=== PATIENT | female | born 1995 | race African-American/Black ===

== ENCOUNTER 2017-09-01 21:44 | Emergency (ER) | payer BC, OTHER ==
[~2017-09-01] VITALS: Ht 175.3 cm; Wt 95.5 kg
[~2017-09-01 21:44] MED LIST: ALBUAER2 INH; AZIT250T PO; FLVHFA44 INH
[2017-09-01 21:46] VITALS: TEMP 37.1; Ht 175.3 cm; Wt 95.5 kg
--- NOTE | 2017-09-01 22:04 | EMERGENCY ROOM VISIT NOTE ---
History Report prepared by Ehsan: Jeffrey Godoy Under the Supervision of: Dr. Mikie Mcmullen D.O. First contact with patient: 21:55 Chief Complaint: CARDIAC ASSESSMENT Stated Complaint: CHEST PAIN History of Present Illness The patient is a 22 year old female who presents to the Emergency Room with complaints of sudden onset chest pain that the patient experienced shortly prior to arrival. The patient notes that she was laying down on her floor and experienced the left-sided chest pain when she stood up. Her pain was worsened with breathing, and she felt very fatigued. The patient was unable to go to the kitchen and get herself a drink of water. 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 She has not experienced any other symptoms at practice. She denies any recent cough or dyspnea, but did start to feel cold symptoms last night into today. 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 A total of 10 systems reviewed and were otherwise negative. Past Medical & Surgical Medical Problems: (1) Asthma (2) Iron deficiency anemia Family History Diabetes mellitus Hypertension Social History Smoking Status: Never Smoker Alcohol Use: none Marital Status: single Occupation Status: student Current/Historical Medications Scheduled Albuterol (Ventolin), 2 PUFFS INH Q4HR PRN Control Pills ( Control Pills), 1 TAB PO DAILY Fluticasone Propionate (Flovent Hfa 44MCG Inhaler *), 2 PUFF INH BID Allergies Coded Allergies: Milk (Verified Allergy, Mild, 09/01/17) Penicillins (Verified Allergy, Mild, 09/01/17) Physical Exam Vital Signs Date Time Temp Pulse Resp B/P (MAP) Pulse Ox O2 Delivery O2 Flow Rate FiO2 09/01/17 23:30 57 18 154/79 98 09/01/17 22:09 65 09/01/17 21:50 Room Air 09/01/17 21:46 37.1 73 18 137/84 100 Room Air Physical Exam GENERAL: Patient is awake, alert, and in no acute distress. Patient is resting comfortably and showing no signs of anxiety EYES: The conjunctivae are clear. The pupils are round and reactive. EARS, NOSE, MOUTH AND THROAT: The nose is without any evidence of any deformity. Mucous membranes are moist tongue is midline NECK: The neck is nontender and supple. RESPIRATORY: Normal respiratory effort is noted there is no evidence of wheezing rhonchi or rales CARDIOVASCULAR: Regular rate and rhythm noted there no murmurs rubs or gallops normal S1 normal S2 GASTROINTESTINAL: The abdomen is soft. Bowel sounds are present in all quadrants. Abdomen is nontender MUSCULOSKELETAL/EXTREMITIES: There is no evidence of gross deformity full range of motion is noted in the hips and shoulders SKIN: There is no obvious evidence of any rash. There are no petechiae, pallor or cyanosis noted. NEUROLOGIC: Patient is awake alert and oriented x3. Medical Decision & Procedures ER Provider Diagnostic Interpretation: Radiology results as stated below per my review and radiologist interpretation: CHEST ONE VIEW PORTABLE CLINICAL HISTORY: Atypical chest pain COMPARISON STUDY: 06/04/2016 FINDINGS: The cardiac and mediastinal contours are normal. There is no evidence of focal pulmonary consolidation. There is no evidence of failure. No pleural effusions are visualized.[ IMPRESSION: No active disease in the chest. Electronically signed by: Chris Ruelas M.D. 09/01/2017 10:20 PM Dictated Date/Time: 09/01/2017 10:20 PM Laboratory Results 09/01/17 21:58 Red Blood Count 4.80, Mean Corpuscular Volume 83.5, Mean Corpuscular Hemoglobin 27.5, Mean Corpuscular Hemoglobin Concent 32.9, Mean Platelet Volume 9.9, Neutrophils (%) (Auto) 62.4, Lymphocytes (%) (Auto) 30.3, Monocytes (%) (Auto) 6.2, Eosinophils (%) (Auto) 0.4, Basophils (%) (Auto) 0.5, Neutrophils # (Auto) 6.88, Lymphocytes # (Auto) 3.34, Monocytes # (Auto) 0.68, Eosinophils # (Auto) 0.04, Basophils # (Auto) 0.05 09/01/17 21:58 Test 09/01/17 21:58 09/01/17 22:05 White Blood Count 11.01 K/uL (4.8-10.8) Red Blood Count 4.80 M/uL (4.2-5.4) Hemoglobin 13.2 g/dL (12.0-16.0) Hematocrit 40.1 % (37-47) Mean Corpuscular Volume 83.5 fL (80-100) Mean Corpuscular Hemoglobin 27.5 pg (25-34) Mean Corpuscular Hemoglobin Concent 32.9 g/dl (32-36) Platelet Count 340 K/uL (130-400) Mean Platelet Volume 9.9 fL (7.4-10.4) Neutrophils (%) (Auto) 62.4 % Lymphocytes (%) (Auto) 30.3 % Monocytes (%) (Auto) 6.2 % Eosinophils (%) (Auto) 0.4 % Basophils (%) (Auto) 0.5 % Neutrophils # (Auto) 6.88 K/uL (1.4-6.5) Lymphocytes # (Auto) 3.34 K/uL (1.2-3.4) Monocytes # (Auto) 0.68 K/uL (0.11-0.59) Eosinophils # (Auto) 0.04 K/uL (0-0.5) Basophils # (Auto) 0.05 K/uL (0-0.2) RDW Standard Deviation 40.3 fL (36.4-46.3) RDW Coefficient of Variation 13.2 % (11.5-14.5) Immature Granulocyte % (Auto) 0.2 % Immature Granulocyte # (Auto) 0.02 K/uL (0.00-0.02) Prothrombin Time 10.1 SECONDS (9.0-12.0) Prothromb Time International Ratio 1.0 (0.9-1.1) Activated Partial Thromboplast Time 24.7 SECONDS (21.0-31.0) Partial Thromboplastin Ratio 1.0 Anion Gap 11.0 mmol/L (3-11) Est Creatinine Clear Calc Drug Dose 126.9 ml/min Estimated GFR () 111.1 Estimated GFR (Non- 95.9 BUN/Creatinine Ratio 14.3 (10-20) Calcium Level 9.7 mg/dl (8.5-10.1) Total Bilirubin 0.3 mg/dl (0.2-1) Direct Bilirubin < 0.1 mg/dl (0-0.2) Aspartate Amino Transf (AST/SGOT) 21 U/L (15-37) Alanine Aminotransferase (ALT/SGPT) 21 U/L (12-78) Alkaline Phosphatase 70 U/L (45-117) Troponin I 0.021 ng/ml (0-0.045) Total Protein 8.5 gm/dl (6.4-8.2) Albumin 3.8 gm/dl (3.4-5.0) Lipase 212 U/L (73-393) Human Chorionic Gonadotropin, Qual NEG (NEG) Bedside D-Dimer 439 ng/mlFEU (0-450) Laboratory results per my review. ECG Indication: chest pain Rate (beats per minute): 62 Rhythm: normal sinus Findings: no acute ischemic change, no ectopy Comparison ECG Date: no prior available ED Course 2155: The patient was evaluated in room C10. A complete history and physical examination were performed. 4: Upon reevaluation, the patient is resting in bed. I discussed the results and treatment plan with the patient and her family. I informed them that she should visit with her PCP before returning to basketball activities. They verbalized understanding of the treatment plan. The patient was discharged home. Medical Decision Differential diagnosis: Etiologies such as cardiac ischemia, aortic dissection, pulmonary embolism, pneumonia, pneumothorax, musculoskeletal, infections, pericarditis, myocarditis , esophageal rupture, gastrointestinal, as well as others were entertained. Nursing notes reviewed. Additional history is obtained from the patient's family members. The patient is a 22-year-old female who presented to the emergency department with an acute onset of chest pain. The pain was not persistent. I discussed the patient's laboratory and radiographic studies with her. I also discussed the limitations of the emergency department workup for chest pain with her. She does play sports. Her EKG did not show any definite signs of ventricular hypertrophy. I recommended she avoid any strenuous activity including sports and follow-up with her family doctor for possible echocardiogram. She was also encouraged to return to the emergency department immediately if symptoms change worsen or the need arises. Medication Reconcilliation Current Medication List: was personally reviewed by me Blood Pressure Screening Patient's blood pressure: Elevated blood pressure Blood pressure disposition: Elevated BP felt to be situational Impression Primary Impression: Left sided chest pain Scribe Attestation The scribe's documentation has been prepared under my direction and personally reviewed by me in its entirety. I confirm that the note above accurately reflects all work, treatment, procedures, and medical decision making performed by me. Departure Information Dispostion Home / Self-Care Referrals No Doctor, Assigned (PCP) Forms IMPORTANT VISIT INFORMATION Patient Instructions My [facility] Additional Instructions Call your family in the morning to schedule a follow-up appointment. I would recommend an echocardiogram to further evaluate the cause of her symptoms. Avoid any strenuous activity including sports until your cleared by her primary care physician.
[2017-09-01 22:17] LABS: BASO % 0.5 %; BASO ABS # 0.05 K/uL (0-0.2); EOS % 0.4 %; EOS ABS # 0.04 K/uL (0-0.5); HEMATOCRIT 40.1 % (37-47); HEMOGLOBIN 13.2 g/dL (12.0-16.0); IG# 0.02 K/uL (0.00-0.02); LYMPH % 30.3 %; LYMPH ABS # 3.34 K/uL (1.2-3.4); MEAN CELL VOLUME 83.5 fL (80-100); MEAN CORPUSCULAR HEMOGLOBIN 27.5 pg (25-34); MEAN CORPUSCULAR HGB CONC 32.9 g/dl (32-36); MEAN PLATELET VOLUME 9.9 fL (7.4-10.4); MONO % 6.2 %; MONO ABS # 0.68 K/uL (0.11-0.59); NEUT % 62.4 %; NEUT ABS # 6.88 K/uL (1.4-6.5); PLATELET COUNT 340 K/uL (130-400); RED CELL DISTRIBUTION WIDTH CV 13.2 % (11.5-14.5); RED CELL DISTRIBUTION WIDTH SD 40.3 fL (36.4-46.3); WHITE BLOOD COUNT 11.01 K/uL (4.8-10.8)
[2017-09-01] MEDS ORDERED: BCPILLS PO (22:17)
--- NOTE | 2017-09-01 22:21 | DIAGNOSTIC IMAGING REPORT ---
CHEST ONE VIEW PORTABLE CLINICAL HISTORY: Atypical chest pain COMPARISON STUDY: 06/04/2016 FINDINGS: The cardiac and mediastinal contours are normal. There is no evidence of focal pulmonary consolidation. There is no evidence of failure. No pleural effusions are visualized.[ IMPRESSION: No active disease in the chest. Electronically signed by: Chris Ruelas M.D. 09/01/2017 10:20 PM Dictated Date/Time: 09/01/2017 10:20 PM
[2017-09-01 22:23] LABS: PTT PATIENT 24.7 SECONDS (21.0-31.0)
[2017-09-01 22:33] LABS: ALBUMIN 3.8 gm/dl (3.4-5.0); ALT/SGPT 21 U/L (12-78); BLOOD UREA NITROGEN 12 mg/dl (7-18); CALCIUM 9.7 mg/dl (8.5-10.1); CARBON DIOXIDE 24 mmol/L (21-32); CREATININE 0.87 mg/dl (0.60-1.20); GLUCOSE 82 mg/dl (70-99); LIPASE 212 U/L (73-393); POTASSIUM 3.4 mmol/L (3.5-5.1); SODIUM 136 mmol/L (136-145)
[2017-09-01 22:38] LABS: ALKALINE PHOSPHATASE 70 U/L (45-117); AST/SGOT 21 U/L (15-37); TOTAL PROTEIN 8.5 gm/dl (6.4-8.2)
[2017-09-01 23:30] VITALS: BP 154/79; PULSE 57; O2SAT 98
== END 2017-09-01 23:30 | disposition home or self-care (01) ==
LOC: C.EDB 21:45 → C.EDC 23:30
DX: R07.9 Chest pain, unspecified (principal); J45.909 Unspecified asthma, uncomplicated; D50.9 Iron deficiency anemia, unspecified; Z88.0 Allergy status to penicillin; Z91.011 Allergy to milk products

== ENCOUNTER 2017-09-29 17:48 | Emergency (ER) | payer OTHER ==
[~2017-09-29] VITALS: Ht 175.3 cm; Wt 94.6 kg
[~2017-09-29 17:48] MED LIST changes: -AZIT250T PO; +BCPILLS PO
[2017-09-29 18:06] VITALS: TEMP 37.1; Ht 175.3 cm; Wt 94.6 kg
--- NOTE | 2017-09-29 19:28 | EMERGENCY ROOM VISIT NOTE ---
History Report prepared by Ehsan: Arnaud Ward Under the Supervision of: Dr. Elis Braun D.O. First contact with patient: 18:54 Chief Complaint: OTHER COMPLAINT Stated Complaint: CHEST PAIN, HARD BREATHING History of Present Illness The patient is a 22 year old female who presents to the Emergency Room with complaints of intermittent chest tightness and shortness of breath beginning yesterday. The patient states she was evaluated in the ED about a month ago for similar symptoms. She reports she was lying on the floor watching TV when her symptoms began a month ago. The patient notes she had an EKG, chest x-ray, and labs that were within normal limits, and she was told she had a potentially pulled muscle. She states she had another episode yesterday as she left [facility] . The patient reports she thought it was reflux, belched, and did not feel better. She notes she went to the [place] ED to be evaluated. The patient states she had a chest x-ray, EKG, and labs that were normal. She reports she was told she had costochondritis and told to take 600mg of ibuprofen every 8 hours. The patient notes she woke up this morning, went to class, and went to basketball practice. She states she did not lift weights or practice. The patient reports she had another episode of chest tightness and shortness of breath. She notes she developed left arm pain and heaviness as well during this episode. The patient states she has a history of asthma and had an asthma attack during her basketball game two days ago. She reports she used a rescue inhaler and was able to complete the game. The patient notes she has a steroid inhaler that she is supposed to use for maintenance, but she stopped taking it a few months ago because she had not had an asthma attack in about 9 years. She states she had her last asthma attack when she was at [facility] by [employer]. She notes the shortness of breath in her episodes has been different than her asthma attacks. The patient reports she also took two charges in her basketball game. She notes she took an elbow and a shoulder to her central chest. The patient states she has had a cold 6 weeks ago, took medication, and it resolved on its own. She reports she has a family history of heart disease and a personal history of strep throat. 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 She denies a history of anxiety or smoking, nausea, lightheadedness, changes in her diet, changes in her activity level, recent travel, alterations in her breasts, and swelling in her legs. Source of History: patient Onset: yesterday Position: chest Quality: other (tightness and SOB) Timing: intermittent Associated Symptoms: No nausea Note: Associated symptoms: left arm pain and heaviness Denies: lightheadedness, changes in her diet, changes in her activity level, recent travel, alterations in her breast, swelling in her legs, history of asthma Review of Systems See HPI for pertinent positives & negatives. A total of 10 systems reviewed and were otherwise negative. Past Medical & Surgical Medical Problems: (1) Asthma (2) Iron deficiency anemia Family History Diabetes mellitus Hypertension Social History Smoking Status: Never Smoker Alcohol Use: none Marital Status: single Occupation Status: student Current/Historical Medications Scheduled Control Pills ( Control Pills), 1 TAB PO DAILY Fluticasone Propionate (Flovent Hfa), 2 PUFFS INH BID Scheduled PRN Albuterol Hfa (Ventolin Hfa), 2 PUFFS INH Q4H PRN for SOB/Wheezing Ibuprofen (Motrin), 600 MG PO DAILY PRN for Pain or Fever Allergies Coded Allergies: Milk (Verified Allergy, Mild, 09/29/17) Penicillins (Verified Allergy, Mild, 09/29/17) Physical Exam Vital Signs Date Time Temp Pulse Resp B/P (MAP) Pulse Ox O2 Delivery O2 Flow Rate FiO2 09/29/17 22:39 75 16 115/76 98 09/29/17 22:02 72 99 Room Air 09/29/17 21:40 52 18 120/72 95 Room Air 09/29/17 19:40 60 18 116/76 95 Room Air 09/29/17 18:06 37.1 62 20 157/96 95 Room Air Physical Exam GENERAL: alert, well appearing, well nourished, no distress, non-toxic EYE EXAM: normal conjunctiva, PERRL and EOM's grossly intact OROPHARYNX: no exudate, no erythema, lips, buccal mucosa, and tongue normal and mucous membranes are moist NECK: supple, no nuchal rigidity, no adenopathy, non-tender LUNGS: Clear to auscultation. Normal chest wall mechanics. No wheezes, rhonchi, or rales. CHEST: No reproducible chest wall tenderness upon palpation. HEART: no murmurs, S1 normal and S2 normal ABDOMEN: abdomen soft, non-tender, normo-active bowel sounds, no masses, no rebound or guarding. BACK: Back is symmetrical on inspection and there is no deformity, no midline tenderness, no CVA tenderness. SKIN: no rashes and no bruising UPPER EXTREMITIES: upper extremities are grossly normal. LOWER EXTREMITIES: No pitting edema. NEURO EXAM: Normal sensorium, cranial nerves II-XII intact, normal speech, no weakness of arms, no weakness of legs. Medical Decision & Procedures ER Provider Diagnostic Interpretation: Radiology results have been interpreted by the radiologist and reviewed by me. CHEST 2 VIEWS ROUTINE HISTORY: 22 years-old Female chest pain, sob acute atypical chest pain with shortness of breath COMPARISON: Chest radiograph 09/01/2017 TECHNIQUE: PA and lateral views of the chest FINDINGS: Cardiomediastinal and hilar silhouettes are within normal limits. No pneumothorax, pleural effusion, focal airspace consolidation or overt pulmonary edema. The bones of the chest appear grossly intact. IMPRESSION: Normal chest radiographs. The above report was generated using voice recognition software. It may contain grammatical, syntax or spelling errors. Electronically signed by: Awais Fair M.D. 09/29/2017 8:04 PM Dictated Date/Time: 09/29/2017 8:03 PM Bedside Ultrasound Electrocardiogram: Grossly EF. No pericardial effusion. No obvious wall motion abnormalities. Laboratory Results 09/29/17 19:35 Red Blood Count 4.72, Mean Corpuscular Volume 83.5, Mean Corpuscular Hemoglobin 27.1, Mean Corpuscular Hemoglobin Concent 32.5, Mean Platelet Volume 9.8, Neutrophils (%) (Auto) 54.6, Lymphocytes (%) (Auto) 36.3, Monocytes (%) (Auto) 8.3, Eosinophils (%) (Auto) 0.4, Basophils (%) (Auto) 0.3, Neutrophils # (Auto) 3.68, Lymphocytes # (Auto) 2.45, Monocytes # (Auto) 0.56, Eosinophils # (Auto) 0.03, Basophils # (Auto) 0.02 09/29/17 19:35 Test 09/29/17 19:35 White Blood Count 6.75 K/uL (4.8-10.8) Red Blood Count 4.72 M/uL (4.2-5.4) Hemoglobin 12.8 g/dL (12.0-16.0) Hematocrit 39.4 % (37-47) Mean Corpuscular Volume 83.5 fL (80-100) Mean Corpuscular Hemoglobin 27.1 pg (25-34) Mean Corpuscular Hemoglobin Concent 32.5 g/dl (32-36) Platelet Count 278 K/uL (130-400) Mean Platelet Volume 9.8 fL (7.4-10.4) Neutrophils (%) (Auto) 54.6 % Lymphocytes (%) (Auto) 36.3 % Monocytes (%) (Auto) 8.3 % Eosinophils (%) (Auto) 0.4 % Basophils (%) (Auto) 0.3 % Neutrophils # (Auto) 3.68 K/uL (1.4-6.5) Lymphocytes # (Auto) 2.45 K/uL (1.2-3.4) Monocytes # (Auto) 0.56 K/uL (0.11-0.59) Eosinophils # (Auto) 0.03 K/uL (0-0.5) Basophils # (Auto) 0.02 K/uL (0-0.2) RDW Standard Deviation 40.9 fL (36.4-46.3) RDW Coefficient of Variation 13.4 % (11.5-14.5) Immature Granulocyte % (Auto) 0.1 % Immature Granulocyte # (Auto) 0.01 K/uL (0.00-0.02) Prothrombin Time 10.2 SECONDS (9.0-12.0) Prothromb Time International Ratio 1.0 (0.9-1.1) D-Dimer 250 ug/L FEU (0-500) Anion Gap 10.0 mmol/L (3-11) Est Creatinine Clear Calc Drug Dose 134.0 ml/min Estimated GFR () 119.4 Estimated GFR (Non- 103.0 BUN/Creatinine Ratio 13.3 (10-20) Calcium Level 9.2 mg/dl (8.5-10.1) Magnesium Level 2.0 mg/dl (1.8-2.4) Total Bilirubin 0.6 mg/dl (0.2-1) Aspartate Amino Transf (AST/SGOT) 18 U/L (15-37) Alanine Aminotransferase (ALT/SGPT) 21 U/L (12-78) Alkaline Phosphatase 70 U/L (45-117) Troponin I < 0.015 ng/ml (0-0.045) Pro-B-Type Natriuretic Peptide 38 pg/ml (0-450) Total Protein 8.1 gm/dl (6.4-8.2) Albumin 3.5 gm/dl (3.4-5.0) Globulin 4.6 gm/dl (2.5-4.0) Albumin/Globulin Ratio 0.8 (0.9-2) Human Chorionic Gonadotropin, Qual NEG (NEG) Monoscreen NEG (NEG) Laboratory results per my review. Medications Administered Medications (Trade) Dose Ordered Sig/Kamini Route Start Time Stop Time Status Last Admin Dose Admin Ketorolac Tromethamine (Toradol Inj) 30 mg NOW STAT IV 09/29/17 20:17 09/29/17 20:19 DC 09/29/17 20:17 30 MG Famotidine (Pepcid 20mg Iv Push) 20 mg ONE STAT IV 09/29/17 20:17 09/29/17 20:19 DC 09/29/17 20:17 20 MG Acetaminophen (Tylenol Tab) 1,000 mg NOW STAT PO 09/29/17 21:42 09/29/17 21:43 DC 09/29/17 21:59 1,000 MG Dexamethasone Sodium Phosphate 10 mg/Syringe 2.5 ml @ 1 mls/min NOW STAT IV 09/29/17 21:42 09/29/17 21:44 DC 09/29/17 21:42 1 MLS/MIN ECG Indication: chest pain Rate (beats per minute): 49 Rhythm: sinus bradycardia Findings: no acute ischemic change, no ectopy, other (Normal axis. Normal interval. No changes to suggest pericarditis.) Change: EKG: Patient's electrocardiogram per my interpretation. ED Course 1858: The patient was evaluated in room A09B. A complete history and physical exam was performed. 2016: Ordered Famotidine 20mg IV, Ketorolac Tromethamine 30mg IV 2041: I reevaluated the patient, discussed current findings, and performed a bedside electrocardiogram. Please refer to the Diagnostic Interpretation for findings. 2141: Ordered Dexamethasone Sodium Phosphate 10 mg/Syringe 2.5ml @ 1 mls/min IV , Acetaminophen 1000mg PO 2200: Upon reevaluation, the patient is feeling better. She is still experiencing intermittent chest tightness, but it has improved. I discussed the findings and the treatment plan with the patient. I told her no strenuous activity, including basketball, until she is reevaluated. She verbalizes agreement and understanding. The patient was discharged home. Medical Decision Differential diagnoses includes but is not limited to acute coronary syndrome, myocardial infarction, pericarditis, pulmonary embolus, aortic dissection, pneumonia, pneumothorax, musculoskeletal, shingles, esophageal. Assessment a significant amount of time reevaluating the patient and answering all questions from her and her mother at bedside. Patient well-appearing here with reassuring labs and imaging, stable vital signs throughout. Pain was improved following additional medications here. Discussed with them follow-up with cardiology for possible echo as a precaution given the persistence of her symptoms. There is no severe family history of sudden cardiac . 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 I do not suspect pericarditis/myocarditis, no evidence of dysrhythmia while on telemetry, no evidence of other occult infectious etiology. Discussed with them possible costochondritis given recent trauma while playing basketball versus possible pleurisy given cold-like symptoms several weeks ago. Discussed with them symptoms to watch and return for, use of [id number] medications to treat at home, adequate hydration, avoidance of strenuous activity and sports until she is otherwise seen and cleared by the team physician. Patient and mom verbalized understanding of this and were agreeable with plan. Medication Reconcilliation Current Medication List: was personally reviewed by me Blood Pressure Screening Patient's blood pressure: Normal blood pressure Blood pressure disposition: Did not require urgent referral Impression Primary Impression: Chest pain Scribe Attestation The scribe's documentation has been prepared under my direction and personally reviewed by me in its entirety. I confirm that the note above accurately reflects all work, treatment, procedures, and medical decision making performed by me. Departure Information Dispostion Home / Self-Care Referrals No Doctor, Assigned (PCP) Forms HOME CARE DOCUMENTATION FORM, IMPORTANT VISIT INFORMATION, WORK / SCHOOL INSTRUCTIONS Patient Instructions ED Chest Pain Atypical Unkn Cause, ED Chest Pain Costochondritis, ED Chest Pain Pleurisy, My [facility] Additional Instructions These keep your appointment as scheduled for tomorrow. Please discuss with your regular doctor possible cardiology evaluation or an outpatient echo of your heart is a precaution. Please do not return to strenuous activity including playing basketball until you're otherwise cleared by a team physician or graduate assistant athletic trainer following your additional evaluation. Please restart your inhaled steroid/controller medication for your asthma. Please keep your rescue inhaler with you at all times. You may use Tylenol and ibuprofen as needed for pain. Please avoid any additional acidity in your diet which could contribute to acid reflux. Please stay well-hydrated and drink plenty of water. If you have any recurrent or worsening chest pain, develop trouble breathing, fevers, dizziness , feels though you're going to pass out, or you've any other new concerns, please return the emergency room. Problem Qualifiers Primary Impression: Chest pain Chest pain type: unspecified Qualified Codes: R07.9 - Chest pain, unspecified
[2017-09-29] MEDS ORDERED: IBUP-1450 PO (19:29)
[2017-09-29] MEDS ORDERED: VNTHFA/IN INH (19:30)
[2017-09-29] MEDS ORDERED: FLVHFA110 INH (19:31)
[2017-09-29 19:51] LABS: BASO % 0.3 %; BASO ABS # 0.02 K/uL (0-0.2); EOS % 0.4 %; EOS ABS # 0.03 K/uL (0-0.5); HEMATOCRIT 39.4 % (37-47); HEMOGLOBIN 12.8 g/dL (12.0-16.0); IG# 0.01 K/uL (0.00-0.02); LYMPH % 36.3 %; LYMPH ABS # 2.45 K/uL (1.2-3.4); MEAN CELL VOLUME 83.5 fL (80-100); MEAN CORPUSCULAR HEMOGLOBIN 27.1 pg (25-34); MEAN CORPUSCULAR HGB CONC 32.5 g/dl (32-36); MEAN PLATELET VOLUME 9.8 fL (7.4-10.4); MONO % 8.3 %; MONO ABS # 0.56 K/uL (0.11-0.59); NEUT % 54.6 %; NEUT ABS # 3.68 K/uL (1.4-6.5); PLATELET COUNT 278 K/uL (130-400); RED CELL DISTRIBUTION WIDTH CV 13.4 % (11.5-14.5); RED CELL DISTRIBUTION WIDTH SD 40.9 fL (36.4-46.3); WHITE BLOOD COUNT 6.75 K/uL (4.8-10.8)
[2017-09-29 20:01] LABS: ALBUMIN 3.5 gm/dl (3.4-5.0); ALT/SGPT 21 U/L (12-78); BLOOD UREA NITROGEN 11 mg/dl (7-18); CALCIUM 9.2 mg/dl (8.5-10.1); CARBON DIOXIDE 24 mmol/L (21-32); CREATININE 0.82 mg/dl (0.60-1.20); GLUCOSE 82 mg/dl (70-99); POTASSIUM 3.4 mmol/L (3.5-5.1); SODIUM 137 mmol/L (136-145)
--- NOTE | 2017-09-29 20:05 | DIAGNOSTIC IMAGING REPORT ---
CHEST 2 VIEWS ROUTINE HISTORY: 22 years-old Female chest pain, sob acute atypical chest pain with shortness of breath COMPARISON: Chest radiograph 09/01/2017 TECHNIQUE: PA and lateral views of the chest FINDINGS: Cardiomediastinal and hilar silhouettes are within normal limits. No pneumothorax, pleural effusion, focal airspace consolidation or overt pulmonary edema. The bones of the chest appear grossly intact. IMPRESSION: Normal chest radiographs. The above report was generated using voice recognition software. It may contain grammatical, syntax or spelling errors. Electronically signed by: Awais Fair M.D. 09/29/2017 8:04 PM Dictated Date/Time: 09/29/2017 8:03 PM
[2017-09-29 20:06] LABS: ALKALINE PHOSPHATASE 70 U/L (45-117); AST/SGOT 18 U/L (15-37); TOTAL PROTEIN 8.1 gm/dl (6.4-8.2)
[2017-09-29] MEDS ORDERED: FAMOTIDINE 20MG/5ML IV PUSH IV STA (20:17)
[2017-09-29] MEDS ORDERED: KETOROLAC TROMETHAMINE 30 MG/ML VIAL IV STA (20:17)
[2017-09-29] MEDS ORDERED: ACETAMINOPHEN 500 MG TAB PO STA (21:42)
[2017-09-29] MEDS ORDERED: DEXAMETHASONE INJ 10 MG in SYRINGE 0 ML IV STA (21:42)
[2017-09-29] MEDS ORDERED: DEXAMETHASONE **PF** INJ 10 MG/ML VIAL ONE (21:54)
[2017-09-29 22:39] VITALS: BP 115/76; PULSE 75; O2SAT 98
[2017-10-01 15:18] LABS: EBV EARLY ANTIGEN AB < 9.00 U/ML
== END 2017-09-29 22:46 | disposition home or self-care (01) ==
LOC: C.EDB 17:48 → C.EDA 22:46
DX: R07.9 Chest pain, unspecified (principal); J45.909 Unspecified asthma, uncomplicated; Z79.3 Long term (current) use of hormonal contraceptives; Z91.011 Allergy to milk products; Z88.0 Allergy status to penicillin; Z83.3 Family history of diabetes mellitus; Z82.49 Family history of ischemic heart disease and other diseases of the circulatory system